=== PATIENT | female | born 1945 | race Caucasian/White ===

== ENCOUNTER → 2024-01-27 14:19 | Outpatient (REF) | payer MEDICARE, SELFPAY | LOC: PAVMRI 14:19 | PROVIDERS: ATTENDING PHYSICIAN Student in an Organized Health Care Education/Training Program; FAMILY PHYSICIAN Nurse Practitioner | DX: R42 Dizziness and giddiness (principal) | CPT/HCPCS: 70544; 70549; 70553; A9585 ==

== ENCOUNTER → 2024-04-19 09:03 | Outpatient (REF) | payer MEDICARE, SELFPAY | LOC: HWRAD 09:03 | PROVIDERS: ATTENDING PHYSICIAN Nurse Practitioner | DX: M85.89 Other specified disorders of bone density and structure, multiple sites (principal) | CPT/HCPCS: 77080 ==

== ENCOUNTER 2025-07-25 18:40 | Emergency (ER) | payer MEDICARE, SELFPAY ==
[2025-07-25 18:48] VITALS: BP 154/74
[2025-07-25 19:00] VITALS: BP 148/79
--- NOTE | 2025-07-25 19:02 | ED.GENMED ---
History of Present Illness
General
Chief Complaint: Fall
Time Seen by Provider: 07/25/25 18:59
History of Present Illness
History of Present Illness:
FOCUSED PAST MEDICAL HISTORY
- Atrial fibrillation on Eliquis, high blood pressure
REVIEW OF OLD RECORDS
- The patient was admitted for left TKA with Dr. Martinez in 2018
Note:
CHIEF COMPLAINT(S)
Fall with subsequent pain and swelling.
HISTORY OF PRESENT ILLNESS
The patient is a 79-year-old female who experienced a fall while leaving a restaurant. She reports that when attempting to enter the car, the ground seemed to slip beneath her feet, causing her to fall and hit her face, particularly the side of the
ear and upper lip, against the car. The patient notes swelling in the upper lip and a small cut inside the lip. There is also an abrasion on the left side of the scalp near the forehead, which is likely unrelated to the fall tonight. The patient
believes she may have struck the back of her head during the fall. She describes pain primarily in the lower back. Additionally, the patient experiences discomfort in her right chest, described as pain when pressure is applied. She reports that deep
breathing exacerbates this pain. The patient is currently on anticoagulation therapy with apixaban.
ADDITIONAL HISTORY OBTAINED FROM SOURCE OTHER THAN THE PATIENT
According to the patients spouse, who witnessed the fall, the patient hit her face against the car and landed on her back. The spouse confirms the patient has a history of meningioma and mild dementia. The patient consumed one beer over an hour and
a half, which the spouse believes did not contribute to the fall.
PAST MEDICAL AND SURGICAL HISTORY
The patient has a known history of osteoarthritis, particularly affecting the lower back. She has undergone a left hip replacement and a left knee replacement.
CHRONIC MEDICAL CONDITIONS SIGNIFICANTLY AFFECTING CARE
The patient has a history of osteoarthritis and mild dementia. She is on anticoagulation therapy with apixaban due to a meningioma.
SOCIAL DETERMINANTS AFFECTING HEALTH
The patient consumed a beer before the fall. She has mild dementia, which may impact her safety and decision-making.
PHYSICAL EXAM
- General: Well appearing in no distress
- Head: There is a small abrasion of the left temporal region, there is mild soft tissue swelling with subcentimeter laceration at the wet dry line in the midline of the upper lip
- C-spine: Mild midline c-spine tenderness; slightly decreased AROM of C-spine
- Back: Decreased active range of motion of the thoracolumbar spine along with some midline tenderness
- HEENT: As above
- Cardiovascular: No murmurs, normal heart rate, regular rhythm, marked right-sided anterior chest wall tenderness
- Pulmonary: No respiratory distress, breath sounds are clear and equal
- Abdomen: Soft with no peritoneal signs, no tenderness
- Neurologic: Good strength all extremities, no coordination deficits
- Psychiatric: Appropriate mental status, normal insight and judgement
- Extremities: Nontender, no edema, moves all extremities equally, left knee surgical scar anteriorly
- Skin: No rash, no lesions
PROBLEM LIST
Acute: Fall with facial impact, potential head trauma, chest discomfort, and lower back pain.
Chronic: Osteoarthritis, mild dementia, meningioma.
PLAN
1. Order a computed tomography scan of the brain to evaluate for intracranial hemorrhage due to anticoagulation therapy.
2. X-rays to assess for potential fractures, particularly in the hip and chest areas.
3. Administer acetaminophen for pain management given the patients current use of anticoagulant medications.
4. Monitor neurological status closely given the history of dementia and potential head trauma.
DIFFERENTIAL DIAGNOSIS
The Differential Diagnosis includes, in no particular order and is not limited to:
1. Traumatic brain injury
2. Rib fracture
3. Lip laceration
4. Dental injury
5. Osteoarthritis exacerbation
6. Vertebral compression fracture
7. Subdural hematoma
8. Scalp contusion
9. Alcohol-related fall
10. Chest wall contusion
RADIOLOGY
- X-ray left hip shows prosthesis with no sign of periprosthetic fracture or dislocation
- CAT scan of the head shows no acute abnormality
- CAT scan of the L-spine shows no fracture
- CAT scan of the C-spine shows no fracture
- CAT scan chest shows no sign of fracture nor any evidence for hematoma or spine fracture
LABS
- Alcohol undetected, CBC and chemistries unremarkable
SUMMARY OF ENCOUNTER
The patient, a 79-year-old female on anticoagulation therapy, presented to the emergency department after a fall with facial impact and possible head trauma. During evaluation, a CT scan of the brain showed no evidence of intracranial hemorrhage. A
CT scan of the cervical spine revealed no fractures. Additionally, imaging ruled out rib fractures or spinal injuries, and a hip x-ray showed no abnormalities. Blood work results were within normal limits. Considering no acute life-threatening
injuries were identified, the patient is deemed stable for discharge.
DISPOSITION
Discharge
INDEPENDENT REVIEW OF LABS AND INTERPRETATION OF TESTS
My independent review of the CT scan of the brain indicates no intracranial hemorrhage.
My independent review of the CT scan of the cervical spine indicates no fractures.
My independent review of the hip x-ray indicates no abnormalities.
My independent review of blood work indicates results were within normal limits.
MEDICATION RECONCILIATION
The patient is currently prescribed apixaban.
MEDICAL DECISION MAKING
-Chronic conditions affecting care: Osteoarthritis, mild dementia, meningioma.
-Data:
Category 1:
Input from independent historian: Information obtained from the patients spouse who witnessed the fall.
Category 2:
My independent interpretation of the CT scan of the brain showed no intracranial hemorrhage.
My independent interpretation of the CT scan of the cervical spine showed no fractures.
My independent interpretation of the hip x-ray showed no abnormalities.
-Risk:
Consideration of Admission/Observation: Escalation of care including admission/observation was considered given the complexity and risk of the patients presenting complaint, exam findings, and/or their underlying comorbidities. However, ultimately I
feel the patient is safe for outpatient management with close follow up. Reasoning: Work-up reassuring, does not reveal any acute life/organ threatening processes, patients symptoms well controlled upon reevaluation, reexamination is reassuring,
vitals are stable, patient agreeable with discharge, reliable for follow-up.
DIAGNOSIS
Fall-related impact with potential head trauma, resolved (ICD-10-CM: W19.XXXA)
Pain in lower back (ICD-10-CM: M54.5)
Chest wall contusion (ICD-10-CM: S20.209A)
Lip laceration, initial encounter (ICD-10-CM: S01.412A)
Swelling of the lip (ICD-10-CM: R22.0)
UPDATE
- Fall on Eliquis
- Some dementia; at baseline mental status per
- Multiple locations of pain after fall
Phy Exam
Physical Exam
Physical Exam:
See HPI
Course
Orders/Labs/Results
Orders:
Orders
07/25/25 19:13
CT Cervical Spine W/o Iv Contr Urgent
Comment:
Reason For Exam: trauma midline tender
CT Chest W/o Iv Contrast Urgent
Comment:
Reason For Exam: trauma back and chest wall tender severe
CT Head W/o Iv Contrast Urgent
Comment:
Reason For Exam: trauma eliquis
CT Lumbar Spine W/o Iv Contras Urgent
Comment:
Reason For Exam: severe low back pain after fall
Acetaminophen [Tylenol] 1,000 mg PO NOW STA
CR Hip - LT w/wo Pel 2-3 Vw* Urgent
Comment:
Reason For Exam: trauma pain
Include a pelvis x-ray?: Yes
07/25/25 19:26
Alcohol Urgent
Complete Blood Count/With Diff Urgent
Comprehensive Metabolic Panel Urgent
Abnormal Lab Results
07/25/25
19:26
Total Protein 9.0 H g/dl
(6.3-8.2)
07/25/25 19:26
07/25/25 19:26
Vital Signs
Initial and Last Documented VS:
Initial Vital Signs
Temp Pulse Resp BP Pulse Ox
36.6 C 75 16 154/74 98
07/25/25 18:48 07/25/25 18:48 07/25/25 18:48 07/25/25 18:48 07/25/25 18:48
Last Documented Vital Signs
Temp Pulse Resp BP Pulse Ox
36.6 C 86 27 148/79 95
07/25/25 18:48 07/25/25 19:30 07/25/25 19:30 07/25/25 19:00 07/25/25 19:30
*Pulse Oximetry
SaO2: 96
Oxygen Mode of Delivery: Room air
Patient hypoxic: no
*Critical Care Note
Total Time (30-74mins, 75-104mins- exclusive of procedures): Not Applicable
ED Attending Note
-
Portions of this chart may have been created with voice recognition software.� Occasional wrong word or��sound alike� substitutions may have occurred due to the inherent limitations of voice recognition software.
Discharge Plan
Departure
Patient Disposition: Home (Routine Discharge)
Date of Disposition: 07/25/25
Time of Disposition: 21:26
Patient with high blood pressure during this ER visit?: Yes
Discharge Problem:
Fall
Instructions: Head Injury in Adults (DC), BLOOD PRESSURE, Fall Prevention for Older Adults
Prescriptions:
No Action
diphenhydramine HCl [Banophen] 25 MG capsule
25 mg PO HSPRN PRN (Reason: sleep)
diltiazem HCl [Cartia XT] 120 MG capsule,extended release 24hr
120 mg PO HS
Slow Fe 45 MG Tab
45 mg PO Q48H
cholecalciferol (vitamin D3) [Vitamin D3] 1,000 UNIT capsule
1,000 unit PO BID
sennosides [senna] 1 TABLET tablet
2 tab PO BID 0RF
acetaminophen 325 MG tablet
650 mg PO QID Qty: 0 0RF
polyethylene glycol 3350 17 GRAMS powder in packet
17 grams PO DAILY 0RF
warfarin [Jantoven] 4 MG tablet
4 mg PO ONCE@1800 Qty: 50 1RF
Rx Instructions:
take 1 tab x 2nights, then as advised after iNR on fri
famotidine 20 MG tablet
20 mg PO HS 0RF
magnesium hydroxide 30 ML suspension
30 ml PO DAILYPRN PRN (Reason: constipation) 0RF
oxycodone 5 MG tablet
5 mg PO Q4HPRN PRN (Reason: moderate-severe pain) Qty: 30 0RF
Rx Instructions:
dx tka
1-2 tabs
ongoing therapy
apixaban [Eliquis] 2.5 MG tablet
2.5 mg PO BID Qty: 30 0RF
Rx Instructions:
*BEGIN WHEN INR<2
*TAKE X 1 MONTH THEN BEGIN CARDIOLOGY RX
lisinopril 10 MG tablet
10 mg PO DAILY Qty: 0 0RF
Rx Instructions:
hold sbp <130
Referrals:
Clara Pabon CRNP [Family Provider, Family Practice]
Activity Restrictions/Additional Instructions:
CAT scans of the brain, cervical spine, lumbar spine, and chest showed no sign of fracture or any other concerning traumatic abnormality. X-ray of the left hip shows no sign of fracture which also includes the pelvis. Basic blood work is
unremarkable. Return if worse or other concerns.
Interventions
Interventions:
*Risk Screen - Suicide Last Done: 07/25/25 18:48
*General Assessment Last Done: 07/25/25 18:48
*Neglect/Abuse Screening Last Done: 07/25/25 18:48
*ED COVID-19 Vaccine History Last Done: 07/25/25 18:53
*ED Influenza Vaccine History Last Done: 07/25/25 18:53
[facility] Fall Risk Assessment Tool Last Done: 07/25/25 18:56
ED-Musculoskeletal Assessment Last Done: 07/25/25 19:05
ED- Neurological Assessment Last Done: 07/25/25 19:05
ED-Skin Assessment Last Done: 07/25/25 19:05
Discharge Date and Time
Print Language: MAURITANIAN
[2025-07-25] MEDS: TYLENOL 1000 MG PO (19:21)
[2025-07-25 19:48] LABS: Hematocrit 45.3 % (37.0-47.0); Hemoglobin 15.1 g/dL (12.0-16.0); Mean Corp Hgb Conc. 33.3 g/dL (33.0-37.0); Mean Corpuscular Volume 84.8 fL (81.0-99.0); Nucleated Red Blood Cells % 0 %; Platelet Count 271 10^3/uL (130-400); Red Cell Dist. Width 13.9 % (11.5-14.5)
[2025-07-25 20:01] LABS: ALT (SGPT) 18 U/L (0-35); AST (SGOT) 27 U/L (14-36); Albumin 4.7 g/dl (3.5-5.0); Alkaline Phosphatase 79 U/L (38-126); Blood Urea Nitrogen 17 mg/dl (7-17); Calcium 9.9 mg/dl (8.4-10.2); Carbon Dioxide 23 mmol/L (22-30); Chloride 103 mmol/L (98-107); Estimated Creatinine Clearance 56 ml/min; Glucose 95 mg/dl (70-99); Potassium 4.6 mmol/L (3.5-5.1); Sodium 137 mmol/L (135-145); Total Protein 9.0 g/dl (6.3-8.2); eGFR > 60.00
[2025-07-25 22:25] VITALS: BP 141/74
== END 2025-07-25 22:26 | disposition home or self-care (01) ==
LOC: EMR 18:40
PROVIDERS: EMERGENCY PHYSICIAN Emergency Medicine; FAMILY PHYSICIAN Nurse Practitioner; REFERRING PHYSICIAN Internal Medicine Cardiovascular Disease
DX: Z04.3 Encounter for examination and observation following other accident (principal); W01.198A Fall on same level from slipping, tripping and stumbling with subsequent striking against other object, initial encounter; Y92.810 Car as the place of occurrence of the external cause; F03.A0 Unspecified dementia, mild, without behavioral disturbance, psychotic disturbance, mood disturbance, and anxiety; I48.91 Unspecified atrial fibrillation; I10 Essential (primary) hypertension; M47.816 Spondylosis without myelopathy or radiculopathy, lumbar region; Z79.01 Long term (current) use of anticoagulants; Z86.011 Personal history of benign neoplasm of the brain; Z96.642 Presence of left artificial hip joint; Z96.652 Presence of left artificial knee joint
CPT/HCPCS: 99284; 70450; 71250; 72125; 72131; 73502; 80053; 82077; 85025